=== PATIENT | male | born 1990 | race Caucasian/White ===

== ENCOUNTER 2025-05-12 08:54 | Emergency (ER) | payer OTHER ==
[~2025-05-12] VITALS: Ht 175.3 cm; Wt 66.7 kg
[~2025-05-12 08:54] MED LIST: CYCL10 PO; IBUP600 PO; IBUP800 PO; LOPE2C PO; PERM5TC TOP; PROM25 PO; RXHYDACE PO; RXIBUP800 PO; SULTRIDS PO
[2025-05-12] MEDS ORDERED: CLIN150 PO (09:40)
== END 2025-05-12 09:40 | disposition home or self-care (01) ==
LOC: ER 08:54
DX: K04.7 Periapical abscess without sinus (principal); Z59.89 Other problems related to housing and economic circumstances; F17.200 Nicotine dependence, unspecified, uncomplicated
CPT/HCPCS: 99282